=== PATIENT | female | born 2000 | race Two or more races ===

== ENCOUNTER 2019-08-28 22:29 | Emergency (ER) | payer OTHER ==
[2019-08-28 22:48] LABS: Bilirubin Negative (Negative); Blood, Urine Negative (Negative); Clarity Clear (Clear); Glucose, Urine (Dipstick) Normal (Negative); Leukocyte Negative Leu/uL (Negative); Nitrite Negative (Negative); Protein, Urine (Dipstick) Negative (Neg-Trace); Urobilinogen Normal mg/dL (Less than 2)
[2019-08-28 22:51] LABS: Pregnancy Test - Urine (BHCG) POSITIVE (Negative); Pregu Control Background? CLEAR/WHITE (CLR/WHITE); Pregu Control Bar Appear? YES (CONTROL BAR); Specific Gravity 1.011 (1.002-1.036)
== END 2019-08-29 00:37 | disposition home or self-care (01) ==
LOC: ERS 22:29 → EDBD 22:29 → ERS 08-29 00:37
DX: O98.811 Other maternal infectious and parasitic diseases complicating pregnancy, first trimester (principal); B37.3 Candidiasis of vulva and vagina; Z3A.09 9 weeks gestation of pregnancy
CPT/HCPCS: 81003; 81025; 87480; 87510; 87660; 99283